=== PATIENT | female | born 1955 | race Caucasian/White ===

== ENCOUNTER 2024-01-07 05:57 | Inpatient (IN) | payer OTHER, SELFPAY ==
--- NOTE | 2023-12-10 09:48 | CM ---
Patient is scheduled for an elective L TKR on 01/07/24. Spoke with patient prior to surgery via telephone. Introduced role of Orthopedic Navigator. Patient reports that she lives with her in a two story home. There are no steps to enter and a
flight of steps to the second floor. She currently functions independently. She has no DME and has never had VN services. PCP is Dr. Thierno Otero.
Discussed orthopedic program and post surgical plans. Reviewed anticipated length of stay and that goal is for her to return home at discharge. Also reviewed outpatient PT. Patient is in agreement with tentative plan and will go directly to
outpatient PT at [facility]. She will have support from her when she goes home.
Patient will complete online education.
Plan: Orthopedic Navigator will remain available to assist with the care of patient and will reassess discharge needs after surgery.
[2023-12-16 12:52] VITALS: BMI 31.4
[2023-12-16 13:57] LABS: Hematocrit 47.4 % (37.0-47.0); Hemoglobin 16.1 g/dL (12.0-16.0); Mean Corpuscular Hgb 30.3 pg (27.0-31.0); Mean Corpuscular Volume 89.3 fL (81.0-99.0); Mean Platelet Volume 10.4 fL (7.4-10.4); Platelet Count 166 10^3/uL (130-400); Red Blood Cell Count 5.31 10^6/uL (4.20-5.40); Red Cell Dist. Width 12.6 % (11.5-14.5)
[2023-12-16 14:08] LABS: ALT (SGPT) 36 U/L (0-35); AST (SGOT) 30 U/L (14-36); Albumin 4.7 g/dl (3.5-5.0); Alkaline Phosphatase 91 U/L (38-126); Blood Urea Nitrogen 14 mg/dl (7-17); Calcium 9.6 mg/dl (8.4-10.2); Carbon Dioxide 24 mmol/L (22-30); Chloride 105 mmol/L (98-107); Estimated Creatinine Clearance 63 ml/min; Glucose 102 mg/dl (70-99); Potassium 4.2 mmol/L (3.5-5.1); Sodium 137 mmol/L (135-145); Total Protein 7.6 g/dl (6.3-8.2); eGFR > 60.00
[2023-12-16 14:31] LABS: Glycohemoglobin (HgbA1c) 5.6 % (4.0-5.6)
[2023-12-16 15:51] VITALS: BMI 31.4
[2024-01-07] VITALS (19 sets, daily range): BP systolic 93–144; BP diastolic 43–80; PULSE 64; O2SAT 97
[2024-01-07] MEDS: CELEBREX 200 MG PO (06:27)
[2024-01-07] MEDS: TYLENOL 650 MG PO ×4 (06:27→23:42)
[2024-01-07] MEDS: NORMOSOL-R 1000 IV ×2 (06:28→11:14)
--- NOTE | 2024-01-07 09:11 | OR.RPT ---
Operative Report
Operative Report
Orthopaedic Surgery Operative Note
DATE OF OPERATION: 01/07/2024
PREOPERATIVE DIAGNOSES: Osteoarthritis, left knee.
POSTOPERATIVE DIAGNOSES: Osteoarthritis, left knee.
OPERATION PERFORMED:
1) Left total knee arthroplasty (CPT 44712)
2) Intraosseous administration of analgesic (CPT 66034)
SURGEON: Manpreet Rockwell MD
ASSISTANTS: Melissa Aguero PA-C who helped with patient and limb positioning and retraction
ANESTHESIA: Spinal by anesthesia plus intraoperative infusion of morphine into the tibial metaphysis by Dr. Rockwell
COMPLICATIONS: None.
ESTIMATED BLOOD LOSS: 20mL
DRAINS: None
TOURNIQUET TIME: 44 minutes.
IMPLANTS:
- Alejandra Persona CR Femur, size 5
- Alejandra Persona tibia base plate, size D
- Alejandra Persona ultracongruent articular surface, 12 mm
- All-polyethylene patellar component, size 32
- DJO Ideal bone cement
INDICATIONS: The patient presented to my office with debilitating left knee pain due to osteoarthritis. We reviewed the natural history of this problem, as well as the risks, benefits, and alternatives of various treatment options. The patient
exhausted all nonoperative treatment options and wished to proceed with knee replacement surgery. The patient understood the risks which included, but were not limited to, bleeding, infection, failure to relieve pain, more pain than preop, damage to
blood vessels and nerves, need for reoperation, mechanical failure of the implants, wound healing problems, stiffness, instability, blood clot, pulmonary embolism, myocardial infarction, pneumonia, arrhythmia, CVA, and . The patient accepted
these risks and wished to proceed. All questions were answered, and informed consent was obtained.
PROCEDURE IN DETAIL: The patient was identified in the preoperative holding area. The left knee was identified as the operative site. The patient was taken in the operating room and placed in a supine position on the operating table. Spinal
anesthesia was performed. IV antibiotics and tranexamic acid were administered. An SCD was placed on the right lower extremity. A well-padded tourniquet was placed on the proximal thigh. All bony prominences were well padded. The left lower
extremity was prepped and draped in the usual sterile fashion.
We performed a surgical time-out. An interarticular block was performed with local anesthetic with epinephrine. The limb was exsanguinated with an Esmarch bandage, then the tourniquet was inflated to 250 mmHg. I performed interosseous
administration of morphine-saline solution via a Jamshidi style intraosseous needle into the proximal medial tibial metaphysis as described by Heath Camargo MD. This was performed to aid in pain control. A midline skin incision was made followed by
a medial parapatellar arthrotomy. A subperiosteal peel was performed on the medial tibia. I excised part of the infrapatellar fat pad to improve our visualization as well as tissue over anterior femur. The patella was everted and the knee was
flexed. I excised the remnants of the anterior and posterior cruciate ligaments as well as tibial and femoral osteophytes with rongeurs.
The knee was flexed, and the extramedullary tibial cutting guide was aligned. [place] was aligned at neutral, rotation was centered on the tibial tubercle, and coronal alignment was aligned with the mechanical axis of the tibia and center of the ankle
joint. The cut height was 10mm off the lateral tibia joint surface. The guide was secured into place. The MCL and LCL were protected. The tibia surface was cut. The cut surface was inspected after removal to ensure appropriate height and slope based
on the preoperative plan. The cut was checked with a drop taj. It was centered nicely at the ankle.
A drill was used to open the femoral canal. The intramedullary distal femoral cutting guide was inserted into the femur. This was set at 5 degrees +0. This was secured into place with three pins. The cut level was checked with an misael wing. The
distal femur was cut through the cutting guide. The IM guide was reinserted to double check that the level of resection was flush and in appropriate alignment.
Rama�s line and the transepicondylar axis were marked on the femur. The femoral sizing guide was applied to the anterior femur. Pins were inserted, and the 4-in-1 cutting guide was applied and secured into place. The rotation was compared to
[place]�s line, the transepicondylar axis, and the neutral tibia cut and was found to be appropriate. The width was checked and found to be appropriate and lateralized on the femur. The anterior, posterior, and chamfur cuts were made. A lamina
vehicle fuel systems converter was used to open the flexion gap, and posterior osteophytes were removed with a curved osteotome. The remnant medial and lateral meniscus were also removed. I prophylactically cauterized the lateral geniculate arteries. A 10mm spacer block
was applied to the flexion gap and was noted to be balanced medially and laterally. The knee was extended, and the block showed symmetric to extension and flexion gaps.
The tibia was exposed and sized. Rotation was set in line with the tibial tubercle and congruent with the femur. The trial was secured into place with two pins. The trial femur was impacted into place, and a trial articular surface was placed. The
knee was taken through range of motion and noted to be stable throughout the arc of motion without gaping or excess tension. In extension, a measured resection of the patella was performed. The patella was sized, and lug holes were drilled. A trial
patella component was applied, and it was noted to track centrally throughout the arc of motion without need for further releases.
The trials were removed. The tibia keel was prepared with the punch and the drill. The bone surfaces were irrigated with sterile saline and dried. The cement was mixed in a vacuum mixer. Cement gun was used to apply cement to the tibial surface and
the undersurface of the tibial implant. Cement was pressurized into the tibial canal and tibia surface. The tibial component was impacted into place. Excess cement was removed. Cement was applied to the femoral surface and the femoral component. The
femoral component was impacted into place, and excess cement removed. A trial articular surface was inserted, and the knee was extended while the cement polymerized. The tourniquet was let down, and meticulous hemostasis was achieved. Dilute
betadine was poured into the wound and allowed to soak for 3 minutes. The knee was irrigated with copious normal saline.
Once the cement was polymerized, the trial articular surface was removed. Any excess cement was removed. The knee was trialed, and the final articular surface was selected and inserted into the tibial locking mechanism. The knee was reduced. A fresh
drape was applied to the surgical field.
The arthrotomy was closed with 0-PDS. Once closed, an interarticular block was performed with local anesthetic with epi. The deep dermal layer was closed with 2-0 PDS, and the subcuticular skin was closed with 3-0 monocryl. A Dermabond Prineo
dressing was applied to the skin in full flexion. Once this was completely dry, a sterile waterproof dressing was applied.
The anesthesia team performed an adductor canal block in the OR. The patient awoke from anesthesia without any difficulties. The sponge and instrument counts were correct x2 at the end of the case.
Harinder Rockwell MD
[2024-01-07] MEDS: TRANSDERM-SCOP 1 PATCH TRANSDERM (11:47)
--- NOTE | 2024-01-07 12:06 | W.PN.ORTHO ---
Today's Communication / Plan
-
D/c when clinically stable.
Assessment
.
Distal Motor Intact: Yes
Dressing:
Clean, dry and intact.
Assessment:
L knee OA s/p L TKA w/ Dr Rockwell 01/07/24
DVT prophylaxis - ASA, b/l venous foot pumps
Post-op nausea and dizziness - likely 2* h/o motion sickness and intolerability to various opioids/benzos
- Pt Rx Scopolamine prior to surgery for forgot to place this morning - will order now
- Continue anti-emetics prn for nausea
- Minimize opioids and benzos as able
GERD and Hiatal hernia - add daily Protonix
Hepatic steatosis with elevated ALT - reduce max dose of Tylenol daily for post-op pain
Chronic diarrhea - Colace ONLY initially for bowel regimen
Hypertriglyceridemia, diet controlled
Colon polyps
Recurrent diverticulitis, last 05/2023
Hypothyroidism
Chronic sinusitis
Osteopenia
Insomnia
Obesity, BMI 31.3
Plan
.
Surgery / Date: L TKA w/ Dr Rockwell 01/07/24
DVT Prophylaxis: Aspirin
Activity:
Out of bed.
PT/OT
Discharge Plan: Home w/ Outpatient PT
Subjective
.
.:
Patient resting comfortably in PACU.
Reports post-op nausea and dizziness, likely 2* h/o motion sickness and intolerability to various opioids/benzos.
L knee pain currently well controlled.
Vital Signs and Labs
.
Vital Signs and Labs:
Lab Results
12/16/23 12:44
12/16/23 12:44
Temp Pulse Resp BP Pulse Ox
98.1 F 83 16 142/80 96
01/07/24 06:15 01/07/24 06:15 01/07/24 06:15 01/07/24 06:15 01/07/24 06:15
Physical Exam
-
HEENT: No pallor, cyanosis, or jaundice. Throat clear.
NECK: Supple. No JVD.
RESPIRATORY: Lungs clear to auscultation.
CVS: S1, S2 normal. RRR.�
ABDOMEN: Soft, non-tender. No distension.
EXTREMITIES: Strength equal, no calf pain with palpation/dorsiflexion. Calves soft.
BAR AND FILLER ASSEMBLER: AOx3. No focal deficits. group chief operator grossly intact
[2024-01-07] MEDS: PROTONIX 40 MG PO (13:10)
[2024-01-07] MEDS: LIDOCAINE 4% PATCH 2 PATCH TOPICAL (13:12)
[2024-01-07] MEDS: ARMOUR THYROID PO (14:36)
[2024-01-07] MEDS: NEURONTIN PO (14:36)
[2024-01-07] MEDS: VITAMIN D3 (cholecalciferol) PO (14:37)
[2024-01-07] MEDS: COMPAZINE 5 MG PO (14:41)
--- NOTE | 2024-01-07 14:44 | PTCARENOTE ---
1415: Patient arrived to 2S. Full head to toe assessment completed/ B/L neurovascular assessment completed. Aquacell clean dry and intact. IVF running per order. Call lee within reach and bed in lowest position.
--- NOTE | 2024-01-07 15:08 | PTCARENOTE ---
Telephone report given to Sneha Parker on 2S. Given update upon arrival with pt to unit, pt's lidocaine patches placement (b/l knee and posterior knee). Tylenol admin. Pt awake, alert, call light within reach.
[2024-01-07] MEDS: ANCEF 5 IV ×2 (17:07→23:43)
[2024-01-07] MEDS: ASPIRIN 325 MG PO (18:15)
[2024-01-07] MEDS: NEURONTIN 200 MG PO ×2 (18:15→21:03)
[2024-01-07] MEDS: ULTRAM 50 MG PO ×2 (19:25→23:43)
[2024-01-07] MEDS: COLACE 100 MG PO (19:26)
[2024-01-07] MEDS: AMBIEN 10 MG PO (21:03)
[2024-01-07] MEDS: BACTROBAN 2% OINTMENT 1 APPLIC NASAL (21:50)
--- NOTE | 2024-01-08 00:33 | PTCARENOTE ---
Patient ambulating with assist x1 with rolling walker.
[2024-01-08 04:44] VITALS: BP 114/59
[2024-01-08] MEDS: TYLENOL 650 MG PO ×2 (06:17→11:53)
[2024-01-08 07:15] VITALS: BP 117/57
[2024-01-08] MEDS: ASPIRIN 325 MG PO (07:50)
[2024-01-08] MEDS: LIDOCAINE 4% PATCH 2 PATCH TOPICAL (07:50)
[2024-01-08] MEDS: ULTRAM 50 MG PO ×2 (07:50→11:54)
[2024-01-08] MEDS: MOBIC 15 MG PO (07:50)
[2024-01-08] MEDS: VITAMIN D3 (cholecalciferol) 50 MCG PO (07:50)
[2024-01-08] MEDS: NEURONTIN 200 MG PO (07:50)
[2024-01-08] MEDS: BACTROBAN 2% OINTMENT 1 APPLIC NASAL (07:50)
[2024-01-08] MEDS: COLACE 100 MG PO (07:50)
[2024-01-08] MEDS: PROTONIX 40 MG PO (07:50)
[2024-01-08] MEDS: ARMOUR THYROID 30 MG PO (07:50)
--- NOTE | 2024-01-08 08:43 | CM ---
Addendum entered by Bonnie Muniz 01/08/24 09:38:
Patient did very well in therapy. Her only concern about going home is her 'nausea and dizziness'; ASHLI Lisa aware of concerns. Patient has updated her .
Original Note:
Reviewed chart and held rounds with PT, OT and nursing. Patient admitted as planned for elective L TKR. Met with patient at bedside. Confirmed information previously obtained for assessment. Also discussed discharge plans. The plan is for patient to
return home at discharge. She will have support from her when she goes home. Patient will go directly to outpatient PT and will go to [facility]. She has an appointment scheduled for Thursday, 01/10.
Patient has a rolling walker and cane.
She will use [facility] for discharge prescriptions.
[2024-01-08 08:46] VITALS: BP 137/57
--- NOTE | 2024-01-08 09:03 | W.PN.ORTHO ---
Today's Communication / Plan
-
Await PT recs.
D/c possible for later today if remaining clinically stable.
Assessment
.
Distal Motor Intact: Yes
Dressing:
Clean, dry and intact.
Assessment:
L knee OA s/p L TKA w/ Dr Rockwell 01/07/24
DVT prophylaxis - ASA, b/l venous foot pumps
Post-op nausea and dizziness - likely 2* h/o motion sickness and intolerability to various opioids/benzos
- Continue Scopolamine patch (pt has 4 at home)
- Continue Compazine TIDPRN upon d/c
- Minimize opioids and benzos as able
- N/V improving w/ above measures by POD 1
GERD and Hiatal hernia - continue added daily Protonix
Hepatic steatosis with elevated ALT - reduced max dose of Tylenol daily for post-op pain
Chronic diarrhea - Colace ONLY initially for bowel regimen
- Will advise adding Senna should no BM occur within 48 hours post-surgery
Hypertriglyceridemia, diet controlled
Colon polyps
Recurrent diverticulitis, last 05/2023
Hypothyroidism
Chronic sinusitis
Osteopenia
Insomnia
Obesity, BMI 31.3
Plan
.
Surgery / Date: L TKA w/ Dr Rockwell 01/07/24
DVT Prophylaxis: Aspirin
Activity:
Out of bed.
PT/OT
Discharge Plan: Home w/ Outpatient PT
Subjective
.
.:
Patient resting comfortably in her chair.
'Queasy' stomach this morning but N/V overall improved since yesterday.
Reporting L knee pain but tolerated OT this AM. Will reassess pain after PT.
Denies any other new significant complaints.
Eager for potential d/c today.
Vital Signs and Labs
.
Vital Signs and Labs:
Lab Results
12/16/23 12:44
12/16/23 12:44
Temp Pulse Resp BP Pulse Ox
98.8 F 68 16 117/57 95
01/08/24 07:15 01/08/24 07:15 01/08/24 07:15 01/08/24 07:15 01/08/24 07:15
Non-invasive Hgb result: 12.7
Physical Exam
-
HEENT: No pallor, cyanosis, or jaundice. Throat clear.
NECK: Supple. No JVD.
RESPIRATORY: Lungs clear to auscultation.
CVS: S1, S2 normal. RRR.�
ABDOMEN: Soft, non-tender. No distension. Obese.
EXTREMITIES: Mild post-surgical L knee edema. Strength equal, no calf pain with palpation/dorsiflexion. Calves soft.
REGISTERED NURSE PRACTITIONER: AOx3. No focal deficits. waste disposal plant operator grossly intact
[2024-01-08] MEDS: COMPAZINE 5 MG IV (09:10)
--- NOTE | 2024-01-08 09:28 | W.DS.TRANS ---
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
-
Discharge Instructions:
Sleep Apnea Risk Low
Discharge Diagnosis/Procedures L knee OA s/p L TKA w/ Dr Rockwell 01/07/24
Diet Regular
Activity As tolerated,With Walker
Driving Restrictions Not until seen by your Dr
Bathing Restrictions OK to Shower
Other Services PT
Wound Care Leave dressing on until seen by surgeon's office
for follow-up in 2 weeks
Instructions:
Stand-Alone Forms: Total Hip/Knee Replacement D/C
Changes to Home Medications: Yes
Discharge Medications:
DC Medications w/original date entered in [employer]
Calm-Aid 1 dose PO DAILY Supplement 12/15/23
ascorbic acid (vitamin C) 1,000 mg tablet (Vitamin C) 1,000 mg PO DAILY Supplement 12/15/23
cholecalciferol (vitamin D3) 50 mcg (2,000 unit) capsule (Vitamin D3) 50 mcg PO DAILY Supplement 12/15/23
thyroid (pork) 30 mg tablet ([place] Thyroid) 30 mg PO DAILY Thyroid 12/15/23
wheat dextrin 3 gram/3.5 gram oral powder packet (Benefiber Clear Sugar Free(dextrin)) 1 packet PO DAILY Constipation 12/15/23
zinc 1 dose PO DAILY Supplement 12/15/23
zolpidem 10 mg tablet 10 mg PO HS Sleep 12/15/23
mupirocin 2 % topical ointment 1 applic intranasal BID #1 tube 12/16/23
scopolamine base 1 mg over 3 days transdermal patch 1 patch transdermal Q72H PRN nausea #4 ea 12/16/23
acetaminophen 650 mg tablet,extended release 650 mg PO Q6H #30 tabs 01/08/24
aspirin 325 mg tablet 325 mg PO DAILY #30 tabs 01/08/24
docusate sodium 100 mg capsule 100 mg PO BID #30 caps 01/08/24
gabapentin 100 mg capsule 200 mg (2 x 100 mg) PO TID neuropathic pain #30 caps 01/08/24
lidocaine 4 % topical patch 2 patch topical DAILY #30 ea 01/08/24
meloxicam 15 mg tablet 15 mg PO DAILY Anti-inflammatory #30 tabs 01/08/24
pantoprazole 40 mg tablet,delayed release 40 mg PO DAILY #30 tabs 01/08/24
prochlorperazine maleate 5 mg tablet 5 mg PO TID PRN nausea/vomiting #30 tabs 01/08/24
sennosides 8.6 mg tablet (Senna Laxative) 17.2 mg (2 x 8.6 mg) PO BIDPRN PRN constipation #30 tabs 01/08/24
tramadol 50 mg tablet 50 - 100 mg (1 - 2 x 50 mg) PO Q6H PRN moderate-severe pain #30 tabs 01/08/24
Home Medication Changes
scopolamine base 1 mg over 3 days transdermal patch 1 patch transdermal Q72H PRN nausea #4 ea 12/16/23
acetaminophen 650 mg tablet,extended release 650 mg PO Q6H #30 tabs 01/08/24
aspirin 325 mg tablet 325 mg PO DAILY #30 tabs 01/08/24
docusate sodium 100 mg capsule 100 mg PO BID #30 caps 01/08/24
gabapentin 100 mg capsule 200 mg (2 x 100 mg) PO TID neuropathic pain #30 caps 01/08/24
lidocaine 4 % topical patch 2 patch topical DAILY #30 ea 01/08/24
meloxicam 15 mg tablet 15 mg PO DAILY Anti-inflammatory #30 tabs 01/08/24
pantoprazole 40 mg tablet,delayed release 40 mg PO DAILY #30 tabs 01/08/24
prochlorperazine maleate 5 mg tablet 5 mg PO TID PRN nausea/vomiting #30 tabs 01/08/24
sennosides 8.6 mg tablet (Senna Laxative) 17.2 mg (2 x 8.6 mg) PO BIDPRN PRN constipation #30 tabs 01/08/24
tramadol 50 mg tablet 50 - 100 mg (1 - 2 x 50 mg) PO Q6H PRN moderate-severe pain #30 tabs 01/08/24
Pending Results: No
[2024-01-08 09:33] VITALS: BP 108/49; BP 111/46; PULSE 65
[2024-01-08 11:11] VITALS: BP 132/68
[2024-01-08] MEDS: TORADOL 30 MG IV (11:54)
== END 2024-01-08 14:35 | disposition home or self-care (01) | DRG 470 ==
LOC: 2 SOUTH 05:57
PROVIDERS: ADMITTING PHYSICIAN Orthopaedic Surgery; FAMILY PHYSICIAN Family Medicine
PROC: 3E0 Administration, Physiological Systems and Anatomical Regions, Introduction (ICD-10-PCS; 2024-01-07)
PROC: 0SRD0J9 Replacement of Left Knee Joint with Synthetic Substitute, Cemented, Open Approach (ICD-10-PCS; 2024-01-07)
DX: M17.12 Unilateral primary osteoarthritis, left knee (principal); R11.0 Nausea; E66.9 Obesity, unspecified; K76.0 Fatty (change of) liver, not elsewhere classified; E03.9 Hypothyroidism, unspecified; M85.80 Other specified disorders of bone density and structure, unspecified site; Z68.31 Body mass index [BMI] 31.0-31.9, adult
CPT/HCPCS: 36415; 73560; 80053; 83036; 85027; 87070; 93005; 97116; 97162; 97166; 97530; C1713; C1776

== ENCOUNTER → 2024-06-25 12:43 | Outpatient (REF) | payer OTHER, SELFPAY | LOC: MRI 3T 12:43 | PROVIDERS: ATTENDING PHYSICIAN Student in an Organized Health Care Education/Training Program; FAMILY PHYSICIAN Family Medicine | DX: M79.671 Pain in right foot (principal) | CPT/HCPCS: 73718 ==

== ENCOUNTER → 2024-07-20 13:56 | Outpatient (REF) | payer OTHER, SELFPAY | LOC: HWWDC 13:56 | PROVIDERS: ATTENDING PHYSICIAN Family Medicine | DX: Z12.31 Encounter for screening mammogram for malignant neoplasm of breast (principal); M85.89 Other specified disorders of bone density and structure, multiple sites | CPT/HCPCS: 77063; 77067; 77080 ==

== ENCOUNTER → 2024-10-17 13:35 | Outpatient (REF) | payer BC, SELFPAY | LOC: RCS 13:35 | PROVIDERS: ATTENDING PHYSICIAN Student in an Organized Health Care Education/Training Program; FAMILY PHYSICIAN Family Medicine | DX: Z01.818 Encounter for other preprocedural examination (principal) | CPT/HCPCS: 93005 ==

== ENCOUNTER → 2024-10-20 07:17 | Outpatient (REF) | payer BC, SELFPAY | LOC: CLAB 07:17 | PROVIDERS: ATTENDING PHYSICIAN Student in an Organized Health Care Education/Training Program | DX: R22.2 Localized swelling, mass and lump, trunk (principal) | CPT/HCPCS: 88304 ==

== ENCOUNTER → 2025-03-01 14:52 | Outpatient (REF) | payer OTHER, SELFPAY | LOC: RCS 14:52 | PROVIDERS: ATTENDING PHYSICIAN Internal Medicine Cardiovascular Disease; FAMILY PHYSICIAN Family Medicine | DX: I25.2 Old myocardial infarction (principal) | CPT/HCPCS: 93306 ==